=== PATIENT | male | born 2000 | race Hispanic/Latino ===

== ENCOUNTER 2021-05-08 23:27 | Observation (INO) | payer OTHER ==
[~2021-05-08] VITALS: Ht 182.9 cm; Wt 89.8 kg
[2021-05-09] VITALS (11 sets, daily range): BP systolic 118–141; BP diastolic 60–84
[2021-05-09] MEDS ORDERED: 0.9%NACL 1000ML 1,000 ML IV ONE (00:30)
[2021-05-09] MEDS ORDERED: TETANUS/DIPHTHERIA TOXOID [ADULT] 0.5 ML VIAL IM ONE ×2 (00:30→02:20)
[2021-05-09 00:35] LABS: INR 1.07 (0.85-1.15); PROTHROMBIN TIME 11.6 SEC (9.6-11.6)
[2021-05-09 00:36] LABS: PARTIAL THROMBOPLASTIN TIME 23.3 SEC (26.3-35.5)
[2021-05-09 00:43] LABS: CREATININE 0.8 mg/dL (0.5-1.5); POTASSIUM 4.6 mmol/L (3.5-5.1)
[2021-05-09 00:47] LABS: ALBUMIN 4.2 g/dL (3.5-5.0); BILIRUBIN,TOTAL 0.4 mg/dL (0.2-1.0); TOTAL PROTEIN, SERUM 7.6 g/dL (6.0-8.3)
[2021-05-09 01:19] LABS: BASOPHILS % (AUTO) 0.2 % (0.0-5.0); EOSINOPHILS % (AUTO) 1.4 % (0.0-8.0); HEMATOCRIT 39.8 % (42-54); LYMPHOCYTES % (AUTO) 20.2 % (21.0-51.0); MEAN CORPUSCULAR HEMOGLOBIN 26.6 pg (27.0-33.0); MEAN CORPUSCULAR HGB CONC 32.7 g/dL (32.0-36.0); MEAN CORPUSCULAR VOLUME 81.4 fL (80-100); MONOCYTES % (AUTO) 11.6 % (3.0-13.0); NEUTROPHILS % (AUTO) 66.3 % (40.0-77.0); PLATELET COUNT (AUTO) 230 K/uL (130-400); RED BLOOD CELL COUNT(AUTO) 4.89 MIL/uL (4.50-6.20); RED CELL DISTRIBUTION WIDTH 13.6 % (11.0-15.5); WHITE BLOOD COUNT (AUTO) 6.4 K/uL (4.8-10.8)
[2021-05-09] MEDS ORDERED: 0.9%NACL 50ML 50 ML IV ONE (02:09)
[2021-05-09] MEDS: CEFAZOLIN SODIUM 1 GM VIAL IVP SCH (02:26)
[2021-05-09] MEDS ORDERED: ACETAMINOPHEN 325 MG TAB PO PRN ×2 (03:00)
[2021-05-09] MEDS ORDERED: ONDANSETRON 4MG INJ IV PRN (03:00)
[2021-05-09] MEDS: MORPHINE 2 MG SYG IV PRN ×2 (03:33→16:35)
[2021-05-09] MEDS: FAMOTIDINE 20MG TAB PO SCH ×2 (10:14→21:09)
[2021-05-10] VITALS (24 sets, daily range): BP systolic 107–157; BP diastolic 53–98
[2021-05-10] MEDS: CEFAZOLIN SODIUM 1 GM VIAL IVP SCH (01:11)
[2021-05-10] MEDS: MORPHINE 2 MG SYG IV PRN (02:20)
[2021-05-10] MEDS ORDERED: ACETAMINOPHEN 650MG ER TAB PO PRN (08:00)
[2021-05-10] MEDS: FAMOTIDINE 20MG TAB PO SCH ×2 (09:00→20:27)
[2021-05-10] MEDS ORDERED: LACTATED RINGERS 1000ML 1,000 ML IV ONE (13:12)
[2021-05-10] MEDS ORDERED: PROPOFOL 10 MG/ML 20ML VIAL IV ONE (13:21)
[2021-05-10] MEDS ORDERED: LIDOCAINE PF 100MG/5ML (2%) SYRINGE 5ML ONE (13:21)
[2021-05-10] MEDS ORDERED: DEXAMETHASONE SOD PHOSPHATE 10MG/ML 1ML VIAL ONE (13:21)
[2021-05-10] MEDS ORDERED: SUCCINYLCHOLINE 200MG/10ML SYR ONE (13:21)
[2021-05-10] MEDS ORDERED: ONDANSETRON 4MG INJ ONE (13:21)
[2021-05-10] MEDS ORDERED: MIDAZOLAM HCL 1 MG/ML 2ML VIAL ONE ×2 (13:21→13:29)
[2021-05-10] MEDS ORDERED: FENTANYL CITRATE PF 50 MCG/1 ML 5ML AMP IV ONE (13:22)
[2021-05-10] MEDS ORDERED: KETAMINE 50MG/ML SYRINGE 50 MG/ML DISP.SYRIN IV ONE (13:33)
[2021-05-10] MEDS ORDERED: CEFAZOLIN SODIUM 1 GM VIAL IVP ONE (14:00)
[2021-05-10] MEDS ORDERED: KETOROLAC 30MG VIAL (30MG/ML) ONE (14:50)
[2021-05-10] MEDS ORDERED: HYDROCODONE/ACETAMINOPHEN 5/325 MG TAB PO PRN (20:00)
[2021-05-11] VITALS: BP 141/60
[2021-05-11] MEDS: CEFAZOLIN SODIUM 1 GM VIAL IVP SCH (01:05)
[2021-05-11 04:00] VITALS: BP 128/68
[2021-05-11 04:40] LABS: BASOPHILS % (AUTO) 0.1 % (0.0-5.0); HEMATOCRIT 39.2 % (42-54); LYMPHOCYTES % (AUTO) 11.8 % (21.0-51.0); MEAN CORPUSCULAR HEMOGLOBIN 26.6 pg (27.0-33.0); MEAN CORPUSCULAR HGB CONC 32.4 g/dL (32.0-36.0); MONOCYTES % (AUTO) 7.2 % (3.0-13.0); NEUTROPHILS % (AUTO) 80.5 % (40.0-77.0); PLATELET COUNT (AUTO) 242 K/uL (130-400); RED BLOOD CELL COUNT(AUTO) 4.78 MIL/uL (4.50-6.20); RED CELL DISTRIBUTION WIDTH 13.2 % (11.0-15.5); WHITE BLOOD COUNT (AUTO) 11.4 K/uL (4.8-10.8)
[2021-05-11 05:27] LABS: ALBUMIN 3.3 g/dL (3.5-5.0); BILIRUBIN,TOTAL 0.1 mg/dL (0.2-1.0); CREATININE 0.9 mg/dL (0.5-1.5); POTASSIUM 4.1 mmol/L (3.5-5.1); TOTAL PROTEIN, SERUM 6.5 g/dL (6.0-8.3)
[2021-05-11 08:21] VITALS: BP 123/65
[2021-05-11] MEDS: FAMOTIDINE 20MG TAB PO SCH (08:25)
[2021-05-11 11:57] VITALS: BP 124/67
== END 2021-05-11 14:40 | disposition home or self-care (01) ==
LOC: EDH 23:45 → EDHIP 05-09 02:49 → 3BH 05-09 23:57
PROVIDERS: ADMIT Internal Medicine; ATTEND Internal Medicine
DX: S52.022B Displaced fracture of olecranon process without intraarticular extension of left ulna, initial encounter for open fracture type I or II (principal); R00.0 Tachycardia, unspecified; V00.141A Fall from scooter (nonmotorized), initial encounter; Y93.89 Activity, other specified; Y92.89 Other specified places as the place of occurrence of the external cause; Y99.8 Other external cause status
CPT/HCPCS: 24685; 36415 ×2; 73080 ×2; 80053 ×2; 85025 ×2; 85610; 85730; 90471; 90714; 93005; 96361 ×3; 96374; 96375; 96376 ×3; 99285; A4222; A4223; A4565; A4606; A4649; A6223; A6446; C1713 ×2; G0378 ×58; J0330; J0690 ×5; J1100; J1885; J2001; J2250 ×2; J2405 ×2; J2704; J3010; J3490; J7120